=== PATIENT | male | born 1935 | race Caucasian/White ===

== ENCOUNTER → 2018-08-17 | Outpatient (CLI) | payer OTHER | LOC: FIMAGING 08:51 | PROVIDERS: ATTEND Orthopaedic Surgery | DX: Z01.818 Encounter for other preprocedural examination (principal); M17.11 Unilateral primary osteoarthritis, right knee ==

== ENCOUNTER 2018-09-06 05:40 | Observation (INO) | payer OTHER ==
--- NOTE | 2018-08-25 17:32 | GHP ---
DATE OF ADMISSION: 09/06/2018 PROBLEM: Right knee severe degenerative arthritis. HISTORY OF PRESENT ILLNESS: The patient is an 83-year-old man admitted for a right total knee arthroplasty. He has had progressive trouble with his right knee for the past few years. He has noticed that the knee is going into excessive valgus. He has a lot of pain going down stairs or walking downhill. At age 15 a horse fell on his right leg and he sustained a severe distal left tibia fracture. PAST MEDICAL HISTORY: He is treated for high blood pressure and acid reflux. No history of heart disease, stents, DVT, hepatitis, MRSA staph infections, sleep apnea or hereditary bleeding disorders. CURRENT MEDICATIONS: Amlodipine 10 mg per day. Hydrochlorothiazide 12.5 mg per day, omeprazole 20 mg daily. METAL ALLERGY: None. LATEX ALLERGY: None. DRUG ALLERGIES: None. SOCIAL HISTORY: The patient is . He does not smoke cigarettes and occasionally drinks alcohol. He is retired. PHYSICAL EXAMINATION: VITAL SIGNS: Height 5 feet 7 inches. Weight 164 pounds. BMI is 25.7. GENERAL: On physical examination he is an alert, healthy- appearing man. HEENT: Eyes conjunctivae and sclerae are clear. Pupils are round and reactive. MOUTH: Good oral hygiene. No loose teeth. CHEST: Clear. HEART: Regular rhythm no murmurs. EXTREMITIES: Pertinent findings are limited to his right knee. He has increased valgus alignment. He can be passively corrected to about 5 or 6 degrees of valgus. He has full extension, 110 degrees of flexion. Mild pseudo laxity of his lateral collateral ligament. IMAGING: Films show very severe lateral compartment degenerative arthritis with valgus deformity. He is bone on bone in the lateral compartment. He has a significant erosion of the lateral tibial plateau. IMPRESSION ON ADMISSION: 1. Right knee severe lateral compartment degenerative arthritis with valgus deformity. 2. Status post bilateral total hip arthroplasties. 3. Treatment for hypertension. 4. Treatment for gastroesophageal reflux disease. 5. Status post right total shoulder arthroplasty. PLAN: The patient will undergo a Samuel robot assisted right total knee arthroplasty. The surgery has been described to him, including the risks, complications, expectations, and recovery time. I have stressed the importance of postoperative physical therapy. I have advised him that a small percentage of people do not get a good result with a total knee replacement. All his questions have been answered, and he consents to surgery. He wants to try to go home on the day of surgery. Copy requested to: Janeth Blank /[id number]/MODL and [id number]/MODL MTDD
[2018-09-06] MEDS ORDERED: DEXAMETHASONE 4 MG/ML VIAL IVP ONE (05:54)
[2018-09-06] MEDS ORDERED: GABAPENTIN 300 MG CAP PO ONE (05:54)
[2018-09-06] MEDS ORDERED: ONDANSETRON 4 MG/2 ML VIAL IVP ONE (05:54)
[2018-09-06] MEDS ORDERED: FAMOTIDINE 20 MG TAB PO ONE (05:54)
[2018-09-06] MEDS ORDERED: ceFAZolin 2 GM/DEXTROSE 100 ML IV ONE (05:54)
[2018-09-06] MEDS ORDERED: ACETAMINOPHEN 325 MG TAB PO ONE (05:54)
[2018-09-06] MEDS ORDERED: LIDOCAINE 1% 2 ML INJ ID PRN (06:00)
[2018-09-06] MEDS ORDERED: LR 1,000 ML IV ONE (06:00)
[2018-09-06] MEDS ORDERED: LIDOCAINE 1% 2 ML INJ ONE (06:09)
--- NOTE | 2018-09-06 06:39 | PDANEPAE ---
ANE Past Medical History - Cardiovascular History Hx Hypertension: Yes Hx Arrhythmias: No Hx Chest Pain: No Hx Coronary Artery / Peripheral Vascular Disease: No Hx CHF / Valvular Disease: No Hx Palpitations: No - Pulmonary History Hx COPD: No Hx Asthma/Reactive Airway Disease: No Hx Recent Upper Respiratory Infection: No Hx Oxygen in Use at Home: No Hx Sleep Apnea: No Sleep Apnea Screening Result - Last Documented: Positive - Neurologic History Hx Cerebrovascular Accident: No Hx Seizures: No Hx Dementia: No - Endocrine History Hx Diabetes: No Hypothyroid: No Hyperthyroid: No Obesity: no - Renal History Hx Renal Disorders: No - Liver History Hx Hepatic Disorders: No - Neurological & Psychiatric Hx Hx Neurological and Psychiatric Disorders: No Neurological / Psychiatric History Comment: occasional situational anxiety - Cancer History Hx Cancer: Yes Cancer History Comment: prostate - Congenital Disorder History Hx Congenital Disorders: No - GI History GERD: no Hx Gastrointestinal Disorders: No Gastrointestinal History Comment: denies GERD but takes PPI due to family hx of esophageal CA - Other Health History Other Health History: none - Chronic Pain History Chronic Pain: No - Surgical History Prior Surgeries: none in last 5 yrs. right shoulder replacment 2001. lumbar fusion ANE Review of Systems Review of Systems: - Exercise capacity Exercise capacity: >=4 METS, limited by disability METS (RN): 4 METS ANE Patient History - Allergies Allergies/Adverse Reactions: No Known Allergies Allergy (Verified 08/08/18 10:52) - Home Medications Home Medications: Acetamn/Diphenhydramine 500/25 [Tylenol PM (*)] 1 each PO HS PRN 08/08/18 [Last Taken 09/05/18] Hydrochlorothiazide [HCTZ (*)] 12.5 mg PO DAILY 08/08/18 [Last Taken 09/05/18] Omeprazole 20 mg PO DAILY 08/08/18 [Last Taken 09/05/18] amLODIPine BESYLATE [Norvasc 10 mg (*)] 10 mg PO DAILY 08/08/18 [Last Taken ] - NPO status NPO Since - Liquids (Date): 09/06/18 NPO Since - Liquids (Time): 05:00 NPO Since - Solids (Date): 09/06/18 NPO Since - Solids (Time): 00:00 - Anes Hx Anes Hx: no prior problems - Smoking Hx Smoking Status: Never smoked Marijuana use: No - Alcohol Use Alcohol Use: Rarely - Family Anes Hx Family Anes Hx: neg - N/A Family Hx Anesthesia Complications: none ANE Labs/Vital Signs - Vital Signs Blood Pressure: 133/80 Heart Rate: 63 Respiratory Rate: 16 O2 Sat (%): 94 Height: 170.18 cm Weight: 73.936 kg ANE Physical Exam - Airway Neck exam: decreased ROM Mallampati Score: Class 2 Mouth exam: normal dental/mouth exam - Pulmonary Pulmonary: no respiratory distress, no rales or rhonchi, clear to auscultation - Cardiovascular Cardiovascular: regular rate and rhythym, no murmur, rub, or gallop - ASA Status ASA Status: II ANE Anesthesia Plan Anesthesia Plan: MAC, spinal Regional Anesthesia: adductor canal FNB Total IV Anesthesia: No
[2018-09-06] MEDS ORDERED: TRANEXAMIC ACID 3,000 MG/50 ML BAG IRR ONE (06:46)
[2018-09-06] MEDS ORDERED: ceFAZolin 1 GM/5 ML SYR ONE (06:47)
[2018-09-06] MEDS ORDERED: MIDAZOLAM 2 MG/2 ML VIAL IVP ONE (06:54)
[2018-09-06] MEDS ORDERED: PROPOFOL/EMULSION 500 MG/50 ML BOTTLE IV ONE ×2 (07:00→08:28)
[2018-09-06] MEDS ORDERED: fentaNYL 100 MCG/2 ML INJ ONE (07:00)
[2018-09-06] MEDS ORDERED: BUPIVACAINE/DEXTROSE 7.5MG/ML 2 ML SPINAL AMP SP ONE (07:01)
[2018-09-06] MEDS ORDERED: LIDOCAINE 2% 5 ML SDV ONE (07:01)
--- NOTE | 2018-09-06 07:03 | PDHPUP ---
History & Physical Update H&P update statement: This history and physical update is based on an assessment of the patient which was completed after admission or registration (within 24 hours), but prior to the surgery/procedure. H&P update: H&P reviewed & patient examined
[2018-09-06] MEDS ORDERED: TRANEXAMIC ACID 3,000 MG in NS (SYRINGE) 50 ML IRR ONE (07:15)
[2018-09-06] MEDS ORDERED: POVIDONE-IODINE 20 ML in SODIUM CL IRRIG SOLUTION 500 ML IRR ONE (07:15)
[2018-09-06] MEDS ORDERED: TRANEXAMIC ACID 1,000 MG in NS 100 ML IV ONE (07:15)
[2018-09-06] MEDS ORDERED: ROPIVACAINE 0.2% 80 MG, EPINEPHrine 0.2 MG, KETOROLAC TROMETHAMINE 30 MG in SYRINGE 0 ML IU ONE (07:15)
[2018-09-06] MEDS ORDERED: oxyCODONE IR 5 MG TAB PO PRN ×2 (09:16→09:43)
[2018-09-06] MEDS ORDERED: fentaNYL 100 MCG/2 ML INJ IVP PRN (09:16)
[2018-09-06] MEDS ORDERED: ONDANSETRON 4 MG/2 ML VIAL IVP PRN ×2 (09:16→09:43)
[2018-09-06] MEDS ORDERED: LR 500 ML IV PRN (09:16)
[2018-09-06] MEDS ORDERED: PHENYLEPHRINE HCL 100 MCG/ML SYR IVP PRN (09:16)
[2018-09-06] MEDS ORDERED: NALOXONE HCL 0.4 MG/ML INJ IVP PRN (09:16)
[2018-09-06] MEDS ORDERED: HYDROCODONE/APAP 5/325 TAB PO PRN (09:16)
[2018-09-06] MEDS ORDERED: ACETAMINOPHEN 500 MG TAB PO PRN (09:16)
[2018-09-06] MEDS ORDERED: ROPIVACAINE HCL 150 MG/30 ML INJ ONE (09:20)
--- NOTE | 2018-09-06 09:34 | POSTOPPROG ---
Post Op Note Date of Operation: 09/06/18 Surgeon: Bert Dill Meter Engineer: Brandi Anesthesiologist: Dr. Mynor Tian Anesthesia: IV Sedation, Spinal Post-op Diagnosis: Right knee severe degenerative arthritis with valgus deformity. Procedure: Right total knee arthroplasty Samuel robot assisted Inf/Abcess present in the surg proc area at time of surgery?: No EBL: 50-100 (Adductor canal block in PACU.)
[2018-09-06] MEDS ORDERED: diphenhydrAMINE 25 MG CAP PO PRN (09:43)
[2018-09-06] MEDS ORDERED: LACTULOSE 20 GM/30 ML UDCUP PO PRN (09:43)
[2018-09-06] MEDS ORDERED: MAGNESIUM HYDROXIDE 30 ML UDCUP PO PRN (09:43)
[2018-09-06] MEDS ORDERED: CYCLOBENZAPRINE 10 MG TAB PO PRN (09:43)
[2018-09-06] MEDS ORDERED: METOCLOPRAMIDE 10 MG/2 ML VIAL IVP PRN (09:43)
[2018-09-06] MEDS ORDERED: DIPHENOXYLATE/ATROPINE LOMOTIL 1 TAB PO PRN (09:43)
[2018-09-06] MEDS ORDERED: ONDANSETRON DISINTEGRATING 4 MG TAB PO PRN (09:43)
[2018-09-06] MEDS ORDERED: TEMAZEPAM 15 MG CAP PO PRN (09:43)
[2018-09-06] MEDS ORDERED: traMADol 50 MG TAB PO PRN (09:43)
[2018-09-06] MEDS ORDERED: PROMETHAZINE HCL 25 MG SUPPR PR PRN (09:43)
[2018-09-06] MEDS ORDERED: PROMETHAZINE HCL 25 MG/ML INJ IVP PRN (09:43)
[2018-09-06] MEDS ORDERED: NS 500 ML IV PRN (09:43)
[2018-09-06] MEDS ORDERED: BISACODYL 10 MG SUPP PR PRN (09:43)
[2018-09-06] MEDS ORDERED: POLYETHYLENE GLYCOL 3350 17 GM PKT PO PRN (09:43)
[2018-09-06] MEDS ORDERED: LR 1,000 ML IV SCH (10:00)
--- NOTE | 2018-09-06 10:23 | GOP ---
[f rep st] OPERATIVE REPORT DATE OF OPERATION: 09/06/2018 SURGEON: Bert Dill MD OIL REFINER: Cali Jhaveri, PAC and Clinton Lobato CFA ANESTHESIA: Combination of Marcaine, spinal, IV sedation, and adductor canal block. PREOPERATIVE DIAGNOSIS: Right knee severe degenerative arthritis with valgus deformity. POSTOPERATIVE DIAGNOSIS: Right knee severe degenerative arthritis with valgus deformity. PROCEDURE PERFORMED: Right total knee arthroplasty, [place] Triathlon, uncemented, Samuel robot-assist ed. FINDINGS: DESCRIPTION OF PROCEDURE: The patient was given 2 g of IV Ancef preoperatively within 60 minutes of surgery. He also received 1000 mg of IV tranexamic acid. He was placed on the operating room table and given spinal anesthesia with Marcaine by Dr. Mynor Tian . He was then placed supine and g iven IV sedation. A Elias catheter was not used. He wore a UZMA stocking and SCD on the nonoperative leg. His right lower extremity was prepped with ChloraPrep from the upper thigh tourniquet to the t ips of the toes. It was draped free using sterile sheets, stockinette, and Ioban plastic adhesive dr barber. His lower leg was wrapped with compressive Coban. The [employer] time-out was performed to verify the correct patient identity and the c orrect surgical side and site. The [place] time-out was also performed. The [employer] leg holding isamar ce was sterilely attached to the operating room table and used throughout the procedure to help posit ion the knee. Two 3 mm partially threaded pins were inserted in a bicortical fashion in the anterome dial cortex of the distal tibia about 4 to 5 inches distal to the tibial tubercle. At this point, th e leg was exsanguinated with a 6-inch compressive wrap, and the tourniquet was inflated to 250 mmHg. I made a straight midline incision centered on the patella. Subcutaneous tissues were sharply divide d and hemostasis was obtained using electrocautery. A medial subcutaneous flap was developed and the capsule and synovium were opened in a medial parapatellar fashion. His medial capsule and periosteu m were lightly elevated off the rim of the medial tibial plateau around to the posteromedial corner. Two 3 mm partially threaded pins were inserted into the medial aspect of the distal femur in the supr acondylar region through this same incision. The femoral check point was inserted anterior to the 2 pins. The tibial check point was inserted onto the anteromedial cortex of the tibia about an inch di stal to the joint line. The computer arrays were attached and I confirmed both the femur and tibia a rrays were visualized by the computer. The bony anatomy of the knee was registered on the computer starting with a center rotation of the fe moral head, followed by the medial and lateral malleoli. The femoral and tibial surfaces were regist ered. Osteophytes around the periphery of the femoral condyles were removed. I performed a dynamic joint balancing. He had significant pseudolaxity laterally. The preoperative plan called for a size 6 femur and a size 6 tibia. In order to accomplish proper joint balancing, I shifted the tibial component 1 mm distal. I then achieved 18 to 19 mm gaps medially and laterally in extension and 90 degrees of flexion. The robotic saw was position and registered. I made the appropriate cuts on the distal femur. The r obot was then used to make the proximal tibial cut. I used the appropriate jig to create the notching the femur using the power sagittal saw and the oste otome in order to accommodate the posterior stabilized femoral component. The size 6 trial femoral c omponent was applied. I was careful that it was centered on the distal femur. The posterior compartment was cleared of meniscal remnants. Osteophytes were removed from the back o f his femoral condyles. 40 mL of the joint anesthetic cocktail were injected into the posterior caps ule, the quadriceps muscle and tendon areas, and the subcutaneous tissues along the skin edges. The tibia was sized for a size 6 component. I used the central thin punch. I drilled a 2 additional anchoring holes in the lateral tibial plateau areas. He had quite sclerotic bone in the lateral com partment from his valgus deformity. He had good quality bone and I was using press-fit components. With the trial components in place, I selected a 9 mm posterior stabilized tibial insert. The knee c yossi to full extension and flexed to 135 degrees. His collateral ligaments were stable and balanced i n full extension and 90 degrees of flexion. The computer gaps were 18 to 19 mm medially and laterall y in full extension and 90 degrees of flexion. The press-fit tibial component was inserted and tappe d securely into place. It was a good tight fit. The femoral component was tapped securely into plac e and was again very tight. The 9 mm Triathlon tibial insert was inserted and locked into place. At this point, the tourniquet was deflated and the total tourniquet time was 1 hour and 10 minutes. I then prepared the patella. The original thickness of the patella was measured. Peripheral osteoph ytes were removed. I cut a flat surface on the back of the patella. It was sized for a 38 mm asymme tric patella, which was 10 mm in thickness. I removed enough bone from the patella, such that the re maining bone, plus the thickness of the patellar component recreated the original thickness of the pa tella. The composite thickness was 24 mm. The knee came to full extension flexed to 135 degrees. H is patella tracked properly without any digital pressure. The knee was thoroughly irrigated with a dilute Betadine solution. 50 cc of tranexamic acid solution were instilled into the joint and left there. The vastus medialis portion of the extensor mechanism was repaired with several interrupted figure-of -eight #2 FiberWire sutures. The capsule and synovium were closed first with multiple interrupted fi [id number] PDS sutures, followed by a running #2 barbed Ethicon Stratafix PDO suture. Subcutane ous tissues were closed with a running 0 barbed Ethicon Stratafix Monoderm suture. The skin was clos ed with a running 3-0 barbed Ethicon Stratafix Monoderm subcuticular suture. The skin was sealed wit h half-inch Steri-Strips. The wound was covered with a large sterile Mepilex waterproof dressing. T he knee was wrapped with a 6-inch compressive wrap. A long-leg UZMA stocking and SCD were applied, fo llowed by the cooling device. The sacral Mepilex dressing was applied. I used a size 6 [place] Triathlon press-fit posterior stabilized femoral component, size 6 Triathlon [place] Tritanium press-fit tibial component, a 38 mm x 10 mm asymmetric patellar component press-fit , and a 9 mm posterior stabilized tibial insert. The sponge and needle count were correct on 2 occasions. He was awakened from anesthesia, transferred to his gurney, and taken to PACU in satisfactory conditi on. There were no recognized intraoperative complications. In the PACU for additional postoperative pain control, Dr. Tian performed an adductor canal bl ock. Ajit Jhaveri and Clinton Lobato acted as surgical assistants. Their assistance was a medical necess ity for safe completion of the procedure. /[id number]/MODL
--- NOTE | 2018-09-06 11:12 | POSTANESTH ---
Post Anesthetic Evaluation Cardiovascular Status: Normal, Stable Respiratory Status: Normal, Stable Level of Consciousness/Mental Status: Can Participate in Eval Pain Control: Adequate, Prn Tx Ordered Nausea/Vomiting Control: Adequate, Prn Tx Ordered Complications Possibly Related to Anesthesia: None Noted
--- NOTE | 2018-09-06 12:23 | ASMTCMCOM ---
CM Note CM Note Notes: Patient is POD #0 R TKA. He is stable and recovering in his room. He lives with his and hopes to d/c home. He is amenable to home PT if recommended but does not think he'll need it. Case Management available to coordinate if so. Date Signed: 09/06/2018 12:22 PM Electronically Signed By:Sanjana Perkins RN
[2018-09-06] MEDS: ACETAMINOPHEN 325 MG TAB PO SCH ×2 (12:49→17:46)
[2018-09-06] MEDS: KETOROLAC 15 MG/1 ML SDV IVP SCH ×2 (12:50→18:01)
[2018-09-06] MEDS ORDERED: ceFAZolin 2 GM/DEXTROSE 100 ML IV SCH (15:30)
[2018-09-06 16:23] VITALS: BP 118/70
[2018-09-06] MEDS ORDERED: SENNOSIDES/DOCUSATE SODIUM TAB PO SCH (21:00)
[2018-09-06] MEDS ORDERED: FAMOTIDINE 20 MG TAB PO SCH (21:00)
[2018-09-06] MEDS ORDERED: ASPIRIN 325 MG TAB PO SCH (21:00)
[2018-09-07] MEDS ORDERED: FERROUS SULFATE 325 MG TAB PO SCH (08:00)
[2018-09-07] MEDS ORDERED: HYDROCHLOROTHIAZIDE 12.5 MG CAP PO SCH (09:00)
== END 2018-09-06 18:04 | disposition home or self-care (01) ==
LOC: F3N 05:40 → INTOOBSV 05:40 → F3N 11:19
PROVIDERS: ADMIT Orthopaedic Surgery; ATTEND Orthopaedic Surgery
DX: M17.11 Unilateral primary osteoarthritis, right knee (principal); M21.061 Valgus deformity, not elsewhere classified, right knee; I10 Essential (primary) hypertension; K21.9 Gastro-esophageal reflux disease without esophagitis; Z87.81 Personal history of (healed) traumatic fracture; Z96.643 Presence of artificial hip joint, bilateral
CPT/HCPCS: 27447; 73560; 88311; 97161; C1776; G0378; J0171; J0690; J1100; J1885; J2250; J2405; J2704; J2795; J3010